=== PATIENT | male | born 2000 | race Caucasian/White ===

== ENCOUNTER 2024-09-02 14:02 | Emergency (ER) | payer OTHER ==
[~2024-09-02] VITALS: Ht 170.2 cm; Wt 96.0 kg
[2024-09-02 14:06] VITALS: O2SAT 99
[2024-09-02 14:07] VITALS: BP 136/97; PULSE 77; RESP 16; O2SAT 98
[2024-09-02] MEDS: KETOROLAC 30MG/ML VIAL IM STA (14:51)
[2024-09-02] MEDS: METOCLOPRAMIDE HCL 10MG/2ML VIAL IM ONE (14:51)
[2024-09-02 15:30] LABS: CHLORIDE 102 mEq/L (98-107); POTASSIUM 3.8 mEq/L (3.5-5.1); SODIUM 138 mEq/L (136-145)
[2024-09-02 15:31] LABS: BASOPHILS % 0.7 % (0.0-2.0); CARBON DIOXIDE 27 mEq/L (21-32); EOSINOPHILS % 1.4 % (0.0-5.0); HEMOGLOBIN. 14.8 g/dL (14.0-18.0); LYMPHOCYTES % 18.1 % (20.0-50.0); MEAN CORPUSCULAR HEMOGLOBIN 28.4 pg (28.0-32.0); MEAN CORPUSCULAR HGB CONC 33.7 g/dL (31.0-37.0); MEAN CORPUSCULAR VOLUME 84.3 fL (80.0-94.0); MEAN PLATELET VOLUME 9.3 fl (7.4-10.4); MONOCYTES % 3.7 % (2.0-8.0); NEUTROPHILS % 76.1 % (40.0-76.0); PLATELET 247 x1000/uL (130-400); RED BLOOD CELL COUNT 5.23 mill/uL (4.7-6.1); RED CELL DISTRIBUTION WIDTH 13.4 % (11.6-14.6); WHITE BLOOD COUNT 7.1 x1000/uL (4.5-11.0)
[2024-09-02 15:32] LABS: CALCIUM 9.3 mg/dL (8.7-10.4)
[2024-09-02 15:37] LABS: CREATININE 0.8 mg/dL (0.6-1.3); GLUCOSE 133 mg/dL (70-105); UREA NITROGEN BLOOD 14 mg/dL (9-23)
[2024-09-02] MEDS ORDERED: AMOX1TAB16 MT (16:26)
[2024-09-02] MEDS ORDERED: FLUT9.9S BOTHNSTRLS (16:26)
[2024-09-02] MEDS ORDERED: NAPR-681 PO (16:26)
[2024-09-02] MEDS ORDERED: D-ME473S50 PO (16:26)
== END 2024-09-02 17:01 | disposition home or self-care (01) ==
LOC: ER 14:02
DX: J32.0 Chronic maxillary sinusitis (principal); R51.9 Headache, unspecified
CPT/HCPCS: 99285; 70450; 80048; 85025; 36415; 70486; 96372; J1885; J2765; 99284